=== PATIENT | female | born 1995 | race African-American/Black ===

== ENCOUNTER 2018-08-17 17:47 | Emergency (ER) | payer OTHER ==
[~2018-08-17] VITALS: Ht 162.6 cm; Wt 55.0 kg
[2018-08-17] MEDS ORDERED: SODIUM CHLORIDE 0.9% 1,000 ML IV ONE (17:57)
[2018-08-17] MEDS ORDERED: OLANZAPINE 10 MG/VIAL IM ONE ×2 (18:00)
[2018-08-17 18:33] LABS: COLOR URINE YELLOW (YELLOW); KETONES URINE NEGATIVE (NEGATIVE); LEUKOCYTE ESTERASE URINE 2+ (NEGATIVE); NITRITE URINE NEGATIVE (NEGATIVE); OCCULT BLOOD URINE 1+ (NEGATIVE); PH URINE 6.5 (4.5-8.0); PROTEIN URINE TRACE (NEGATIVE); SPECIFIC GRAVITY URINE 1.031 (1.005-1.030)
[2018-08-17 18:34] LABS: CLARITY URINE HAZY (CLEAR)
[2018-08-17] MEDS: LORAZEPAM 2MG/ML CPJ IM PRN ×2 (18:34→19:53)
[2018-08-17 18:37] LABS: BASOPHILS % 0.5 % (0.0-2.0); EOSINOPHILS % 0.6 % (0.0-5.0); HEMOGLOBIN. 12.3 g/dL (12.0-16.0); LYMPHOCYTES % 26.2 % (20.0-50.0); MEAN CORPUSCULAR HEMOGLOBIN 25.2 pg (28.0-32.0); MEAN CORPUSCULAR VOLUME 79.7 fL (81.0-99.0); MEAN PLATELET VOLUME 7.6 fl (7.4-10.4); MONOCYTES % 7.6 % (2.0-8.0); NEUTROPHILS % 65.1 % (40.0-76.0); PLATELET 399 x1000/uL (130-400); RED BLOOD CELL COUNT 4.89 mill/uL (4.2-5.4); RED CELL DISTRIBUTION WIDTH 15.3 % (11.6-14.6)
[2018-08-17 18:39] LABS: CHLORIDE 105 mEq/L (98-107)
[2018-08-17 18:42] LABS: ETHANOL BLOOD < 10 mg/dL
[2018-08-17 18:47] LABS: *BARBITURATES SCREEN URINE NEGATIVE (NEGATIVE); *BENZODIAZEPINES SCREEN URINE NEGATIVE (NEGATIVE); METHADONE URINE SCREEN NEGATIVE (NEGATIVE)
[2018-08-17 18:48] LABS: CANNABINOID URINE SCREEN NEGATIVE (NEGATIVE); OPIATES URINE SCREEN NEGATIVE (NEGATIVE); PHENCYCLIDINE URINE SCREEN NEGATIVE (NEGATIVE)
[2018-08-17 18:55] LABS: HCG SCREEN NEGATIVE
[2018-08-17 18:56] LABS: *AMPHETAMINES SCREEN URINE PRESUMTIVE POSITIVE (NEGATIVE); *COCAINE SCREEN URINE PRESUMTIVE POSITIVE (NEGATIVE)
[2018-08-17] MEDS ORDERED: CEFTRIAXONE 1 G PREMIX 50 ML IV ONE (19:15)
[2018-08-18 09:30] VITALS: BP 128/72
== END 2018-08-18 12:30 | disposition home or self-care (01) ==
LOC: ER 17:47
DX: T40.5X1A Poisoning by cocaine, accidental (unintentional), initial encounter (principal); G92 Toxic encephalopathy; Y92.89 Other specified places as the place of occurrence of the external cause; N39.0 Urinary tract infection, site not specified
CPT/HCPCS: 36415; 70450; 80048; 80305; 80307; 80320; 80329; 81003; 81025; 84703; 85025; 87086; 96361; 96365; 96366; 96372; 99284; J0696; J2060; J3490; J7030; Z7610; G0480

== ENCOUNTER 2018-08-18 13:44 | Emergency (ER) | payer OTHER, SELFPAY ==
[~2018-08-18] VITALS: Ht 162.6 cm; Wt 60.0 kg
[2018-08-18] MEDS ORDERED: NITROFURANTOIN 100MG M/M CAPSULE PO ONE (14:30)
[2018-08-19 05:48] VITALS: BP 112/80
== END 2018-08-19 09:05 | disposition home or self-care (01) ==
LOC: ER 13:44
DX: N30.00 Acute cystitis without hematuria (principal); F23 Brief psychotic disorder; F14.10 Cocaine abuse, uncomplicated; F15.10 Other stimulant abuse, uncomplicated; R41.82 Altered mental status, unspecified; Z59.0 Homelessness
CPT/HCPCS: 99283